=== PATIENT | male | born 1975 | race Two or more races ===

== ENCOUNTER 2020-11-18 19:17 | Emergency (ER) | payer MEDICARE ==
[~2020-11-18] VITALS: Ht 193 cm; Wt 109.0 kg
[2020-11-18 19:49] VITALS: BP 137/84
== END 2020-11-18 20:27 | disposition home or self-care (01) ==
LOC: ED 19:30
DX: L20.9 Atopic dermatitis, unspecified (principal)
CPT/HCPCS: 99283